=== PATIENT | female | born 1960 | race Caucasian/White ===

== ENCOUNTER 2023-09-09 21:02 | Emergency (ER) | payer BC, OTHER ==
[2023-09-09] MEDS ORDERED: Ondansetron PF 4 MG/2 ML Vial ONE (22:39)
[2023-09-09] MEDS ORDERED: Morphine 4 MG/ML VIAL ONE (22:39)
[2023-09-09] MEDS ORDERED: Bupivacaine PF 0.5% 30 ML VIAL ONE (23:44)
[2023-09-10] MEDS ORDERED: Morphine 10 MG/ML VIAL ONE (00:26)
[2023-09-10] MEDS ORDERED: Ondansetron ODT 4 MG TAB ONE ×2 (00:57→02:57)
[2023-09-10] MEDS ORDERED: Metoclopramide HCl 10 MG (2 mL) VIAL ONE (01:34)
[2023-09-10] MEDS ORDERED: diphenhydrAMINE 50 MG/ML VIAL ONE (01:34)
== END 2023-09-10 02:50 | disposition home or self-care (01) ==
LOC: ERS 21:02
DX: S52.572A Other intraarticular fracture of lower end of left radius, initial encounter for closed fracture (principal); S62.002A Unspecified fracture of navicular [scaphoid] bone of left wrist, initial encounter for closed fracture; X50.1XXA Overexertion from prolonged static or awkward postures, initial encounter
CPT/HCPCS: 25605; 96374; 96375; 96376; J1200; J2270; J2405; J2765; Q0162; S0020

== ENCOUNTER 2023-09-24 07:36 | Day surgery (SDC) | payer BC ==
[2023-09-23 13:37] VITALS: BMI 29.9
[2023-09-24] MEDS ORDERED: Clindamycin/D5W 900 mg/50 ml Premix Bag ONE (08:12)
[2023-09-24] MEDS ORDERED: Lidocaine 1% (PF) 30 ML VIAL ONE (08:21)
[2023-09-24] MEDS ORDERED: PROPOFOL 20 ML ONE (08:25)
[2023-09-24] MEDS ORDERED: Midazolam HCl 2 mg/2 ml Vial ONE (08:31)
[2023-09-24] MEDS ORDERED: fentaNYL PF 100 MCG/2 ML SYRINGE ONE (08:31)
[2023-09-24] MEDS ORDERED: Lidocaine 1% PF 5 ML VIAL ONE (08:32)
[2023-09-24] MEDS ORDERED: Ondansetron PF 4 MG/2 ML Vial ONE (09:02)
[2023-09-24] MEDS ORDERED: Dexamethasone 4 mg/ml Vial ONE (09:02)
[2023-09-24] MEDS ORDERED: Bupivacaine PF 0.5% 30 ML VIAL ONE (09:43)
[2023-09-24] MEDS ORDERED: Labetalol HCl 100 MG/20 ML VIAL ONE (10:01)
[2023-09-24] MEDS ORDERED: hydrALAZINE 20 MG/ML VIAL ONE (11:04)
[2023-09-24] MEDS ORDERED: fentaNYL 50 mcg/mL 1 mL Vial ONE (11:11)
[2023-09-24] MEDS ORDERED: HYDROcodone/Acetaminophen 5/325 mg Tablet ONE (12:26)
[2023-09-24] MEDS ORDERED: Ondansetron ODT 4 MG TAB ONE (13:36)
== END 2023-09-24 14:17 | disposition home or self-care (01) ==
LOC: SDC 07:36
PROVIDERS: ATTEND Orthopaedic Surgery
PROC: 0PSJ04Z Reposition Left Radius with Internal Fixation Device, Open Approach (ICD-10-PCS; principal; 2023-09-24)
DX: S52.552A Other extraarticular fracture of lower end of left radius, initial encounter for closed fracture (principal); Z88.0 Allergy status to penicillin; W19.XXXA Unspecified fall, initial encounter
CPT/HCPCS: C1713; J0360; J0665; J1100; J2001; J2250; J2405; J2704; J3010; J3490; Q0162

== ENCOUNTER 2025-04-15 12:43 | Outpatient (CLI) | payer OTHER | END 2025-04-15 12:44 | disposition home or self-care (01) | LOC: BICRAD 12:43 | PROVIDERS: ATTEND Student in an Organized Health Care Education/Training Program | DX: S52.501A Unspecified fracture of the lower end of right radius, initial encounter for closed fracture (principal) ==